=== PATIENT | female | born 1980 | race American Indian/Alaskan Native ===

== ENCOUNTER 2016-05-20 16:46 | Observation (INO) | payer MEDICAID, OTHER ==
--- NOTE | 2016-05-20 17:39 | ED PDOC ---
Arrival/HPI - General Chief Complaint: Chest Pain Time Seen by Provider: 05/20/16 17:03 Historian: Patient - History of Present Illness Narrative History of Present Illness (Text): 05/20/16 17:31 35 year old female with a past medical history that includes asthma sent to the emergency department by PMD for further evaluation of left sided chest pain/ back pain since yesterday. Patient states the pain began while sitting in bed. She states the pain is worse with movement. She states she took Ibuprofen, last dose at 06:30 today with no relief. Denies abdominal pain, urinary symptoms, or stool changes. No recent travel or prolonged immobilization. Denies trauma/ injury or heavy lifting. No control use or tobacco use. Patient also reports recent cold symptoms. Patient reports her brother had a defibrilator put in at 35 years old, father with stents, and mother with CHF. PMD: Dr. Cantor Time/Duration: 24 hours Symptom Onset: Sudden Symptom Course: Unchanged Modifying Factors (Text): None Associated Symptoms (Text): None Past Medical History - Provider Review Nursing Documentation Reviewed: Yes - Tetanus Immunization Tetanus Immunization: Unknown - Cardiac Hx Cardiac Disorders: No - Pulmonary Hx Respiratory Disorders: Yes Hx Asthma: Yes - Neurological Hx Neurological Disorder: No - HEENT Hx HEENT Disorder: No - Renal Hx Renal Disorder: No - Endocrine/Metabolic Hx Endocrine Disorders: Yes Other/Comment: PRE DM - Hematological/Oncological Hx Blood Transfusions: No Other/Comment: VITAMIN D DEFICIENT - Integumentary Hx Dermatological Disorder: No - Musculoskeletal/Rheumatological Hx Musculoskeletal Disorders: No - Gastrointestinal Hx Gastrointestinal Disorders: No - Genitourinary/Gynecological Hx Genitourinary Disorders: No - Psychiatric Hx Psychophysiologic Disorder: No Hx Emotional Abuse: No Hx Physical Abuse: No Hx Substance Use: No - Surgical History Hx Section: Yes - Anesthesia Hx Anesthesia Reactions: No Hx Malignant Hyperthermia: No - Suicidal Assessment Feels Threatened In Home Enviroment: No Family/Social History - Physician Review Nursing Documentation Reviewed: Yes Family/Social History: [place] Smoking Status: Never Smoked Hx Alcohol Use: No Hx Substance Use: No Hx Substance Use Treatment: No Allergies/Home Meds Allergies/Adverse Reactions: Allergies FISH Allergy (Verified 05/20/16 16:56) RASH seafood general Home Medications: Home Meds Medication Instructions Recorded Confirmed No Known Home Med 05/20/16 05/20/16 Review of Systems - Review of Systems Eyes: absent: Vision Changes ENT: absent: Hearing Changes Respiratory: absent: SOB Cardiovascular: Chest Pain Gastrointestinal: absent: Abdominal Pain, Stool Changes, Diarrhea, Nausea, Vomiting Genitourinary Female: absent: Dysuria, Frequency, Hematuria Musculoskeletal: Back Pain Skin: absent: Rash Neurological: absent: Dizziness Endocrine: absent: Diaphoresis Hemo/Lymphatic: absent: Easy Bleeding Psychiatric: absent: Depression Physical Exam - Physical Exam Narrative Physical Exam (Text): Head: Atraumatic. Normocephalic. Eyes: PERRL. EOMI. Conjunctivae are not pale. ENT: Mucous membranes are moist and intact. Oropharynx is clear and symmetric. Neck: Supple. Full ROM. No JVD. No lymphadenopathy. Cardiovascular: Regular rate. Regular rhythm. No murmurs, rubs, or gallops. Distal pulses are 2+ and symmetric. Pulmonary/Chest: Palpable left anterior chest wall pain. No evidence of respiratory distress. Clear to auscultation bilaterally. No wheezing, rales or rhonchi. Abdominal: Soft and non-distended. There is no tenderness. No rebound, guarding, or rigidity. No organomegaly. Good bowel sounds. Back: No CVA tenderness. Palpable mild left scapula pain. Extremities: No edema. No cyanosis. No clubbing. Full range of motion in all extremities. No calf tenderness. Skin: Skin is warm and dry. No petechiae. No purpura. Neurological: Alert, awake, and oriented to person, place, time, and situation. Normal speech. Psychiatric: Good eye contact. Normal interaction, affect, and behavior. Vital Signs Reviewed: Yes Vital Signs Temp Pulse Resp BP Pulse Ox 05/20/16 19:15 83 18 117/68 100 05/20/16 17:30 98.1 F 72 18 142/84 99 Temperature: Afebrile Blood Pressure: Normal Pulse: Regular Respiratory Rate: Normal Appearance: Positive for: Well-Appearing, Non-Toxic, Comfortable Pain Distress: None Mental Status: Positive for: Alert and Oriented X 3 Medical Decision Making ED Course and Treatment: Differential Diagnosis included but are not limited to: Nonspecific chest pain Plan: Will get CCU workup, d-dimer, and reevaluate. Progress Notes: D-dimer unremarkable. Aspirin was ordered for persistent chest pain. Given patient's past cardiac history, will admit to telemetry observation with cardiac consult. Case discussed with Dr. Cantor. - Lab Interpretations Lab Results: 05/20/16 17:05 05/20/16 17:05 Lab Results 05/20/16 17:05: WBC 8.0 D, RBC 4.41, Hgb 11.5 L, Hct 34.5 L, MCV 78.2 L, MCH 26.1, MCHC 33.3, RDW 14.5, Plt Count 365, MPV 10.1, Gran % 55.8, Lymph % (Auto) 35.0, Miller % (Auto) 7.0 H, Eos % (Auto) 2.0, Baso % (Auto) 0.2, Gran # 4.47, Lymph # 2.8, Miller # 0.6, Eos # 0.2, Baso # 0.02, PT 10.1, INR 0.94, APTT 30.4, D -Dimer, Quantitative 0.27, Sodium 139, Potassium 3.8, Chloride 101, Carbon Dioxide 28, Anion Gap 14, BUN 9, Creatinine 0.7, Est GFR ( Amer) > 60, Est GFR (Non-Af Amer) > 60, Random Glucose 97, Calcium 9.3, Total Bilirubin 0.4 , AST 25, ALT 17, Alkaline Phosphatase 133, Lactate Dehydrogenase 428, Total Creatine Kinase 95, Troponin I < 0.01, NT-Pro-B Natriuret Pep 11.6, Total Protein 8.4 H, Albumin 4.3, Globulin 4.1, Albumin/Globulin Ratio 1.0 L, Urine Color Yellow, Urine Appearance Clear, Urine pH 6.5, Ur Specific Adkins 1.015, Urine Protein Negative, Urine Glucose (UA) Negative, Urine Ketones Negative, Urine Blood Negative, Urine Nitrate Negative, Urine Bilirubin Negative, Urine Urobilinogen 0.2, Ur Leukocyte Esterase Negative, Urine HCG, Qual Negative - RAD Interpretation Radiology Orders: 05/20/16 17:35 CHEST PORTABLE [RAD] Stat - Medication Orders Current Medication Orders: Discontinued Medications Tramadol HCl (Ultram) 50 mg PO STAT STA Stop: 05/20/16 19:00 Last Admin: 05/20/16 19:08 Dose: 50 MG - Scribe Statement The provider has reviewed the documentation as recorded by the Johnnie Lopez Provider Scribe Attestation: All medical record entries made by the Scribe were at my direction and personally dictated by me. I have reviewed the chart and agree that the record accurately reflects my personal performance of the history, physical exam, medical decision making, and the department course for this patient. I have also personally directed, reviewed, and agree with the discharge instructions and disposition. Disposition/Present on Arrival - Present on Arrival Any Indicators Present on Arrival: No History of DVT/PE: No History of Uncontrolled Diabetes: No Urinary Catheter: No History of Decub. Ulcer: No History Surgical Site Infection Following: None - Disposition Have Diagnosis and Disposition been Completed?: Yes Diagnosis: Chest pain Disposition: HOSPITALIZED Disposition Time: 19:00 Patient Plan: Observation, Telemetry Patient Problems: Current Active Problems Problem Status Diagnosed Chest pain Acute Condition: FAIR
[2016-05-20 17:49] LABS: ADD MANUAL DIFF? NO
[2016-05-20 18:11] LABS: ALKALINE PHOSPHATASE 133 U/L (38-133); ALT/SGPT 17 U/L (7-56); AST/SGOT 25 U/L (15-39); BILIRUBIN,TOTAL 0.4 mg/dL (0.2-1.3); BLOOD UREA NITROGEN 9 mg/dL (7-21); CALCIUM 9.3 mg/dL (8.4-10.5); CARBON DIOXIDE 28 mmol/L (21-33); CHLORIDE 101 mmol/L (98-107); GFR AFRICAN-AMERICAN > 60; GLUCOSE,RANDOM 97 mg/dL (70-110); POTASSIUM 3.8 mmol/L (3.6-5.0); SODIUM 139 mmol/L (132-148); TOTAL PROTEIN 8.4 g/dL (5.8-8.3)
[2016-05-20 18:22] LABS: PH,URINE 6.5 (4.7-8.0); URINE BILIRUBIN NEGATIVE (NEGATIVE); URINE GLUCOSE (UA) NEGATIVE (NEGATIVE); URINE KETONE NEGATIVE (NEGATIVE); URINE LEUKOCYTE ESTERASE NEGATIVE Leu/uL (NEGATIVE); URINE PROTEIN NEGATIVE mg/dL (<30 mg/dL); URINE UROBILINOGEN 0.2 E.U./dL (<1 E.U./dL)
[2016-05-20 18:24] LABS: TROPONIN I < 0.01 ng/mL
[2016-05-20 18:35] LABS: BASO # 0.02 K/mm3 (0.0-2.0); BASO % 0.2 % (0.0-3.0); EOS # 0.2 (0.0-0.7); GRAN # 4.47 (1.4-6.5); GRAN % 55.8 % (50.0-68.0); HEMATOCRIT 34.5 % (36.0-48.0); LYMPH # 2.8 (1.2-3.4); MEAN CELL VOLUME 78.2 fL (80.0-105.0); MEAN CORPUSCULAR HEMOGLOBIN 26.1 pg (25.0-35.0); MEAN CORPUSCULAR HGB CONC 33.3 g/dl (31.0-37.0); MEAN PLATELET VOLUME 10.1 fl (7.0-11.0); MONO # 0.6 (0.1-0.6); PLATELET COUNT 365 10^3/uL (120.0-450.0); RED CELL DISTRIBUTION WIDTH 14.5 % (11.5-14.5)
[2016-05-20 18:36] LABS: URINE COLOR YELLOW (YELLOW)
[2016-05-20 18:37] LABS: URINE APPEARANCE CLEAR (CLEAR); URINE BLOOD NEGATIVE (NEGATIVE)
[2016-05-20 18:48] LABS: INR 0.94 (0.93-1.08); PARTIAL THROMBOPLASTIN TIME 30.4 Seconds (23.7-30.8)
[2016-05-20 19:01] LABS: D DIMER 0.27 mg/L FEU (0-0.50)
[2016-05-20 19:17] VITALS: O2SAT 100
[2016-05-20 23:31] VITALS: BMI 36.6
[2016-05-20] MEDS ORDERED: Oxycodone/Acetaminophen 5/325 mg Tab PO STA (23:57)
[2016-05-21 01:28] LABS: TROPONIN I < 0.01 ng/mL
[2016-05-21 06:11] VITALS: BP 116/65; PULSE 88; RESP 20; TEMP 98.6
[2016-05-21 07:25] LABS: HEMATOCRIT 31.9 % (36.0-48.0); MEAN CELL VOLUME 78.4 fL (80.0-105.0); MEAN CORPUSCULAR HEMOGLOBIN 26.5 pg (25.0-35.0); MEAN CORPUSCULAR HGB CONC 33.9 g/dl (31.0-37.0); MEAN PLATELET VOLUME 9.7 fl (7.0-11.0); RED CELL DISTRIBUTION WIDTH 14.5 % (11.5-14.5); WHITE BLOOD COUNT 6.4 10^3/ul (4.5-11.0)
[2016-05-21 07:36] LABS: BLOOD UREA NITROGEN 9 mg/dL (7-21); CALCIUM 9.1 mg/dL (8.4-10.5); CARBON DIOXIDE 26 mmol/L (21-33); CHLORIDE 101 mmol/L (95-110); GFR AFRICAN-AMERICAN > 60; GLUCOSE,RANDOM 100 mg/dL (70-110); POTASSIUM 3.8 mmol/L (3.6-5.0); SODIUM 137 mmol/L (132-148)
--- NOTE | 2016-05-21 08:25 | CARD ---
APPROVED REPORT EKG Measurement Heart [id number] <Conclusion> Normal sinus rhythm with sinus arrhythmia Normal ECG
--- NOTE | 2016-05-21 13:35 | RAD ---
PROCEDURE: CHEST RADIOGRAPH, 1 VIEW HISTORY: chest pain COMPARISON: None available. FINDINGS: LUNGS: Clear. PLEURA: No pneumothorax or pleural fluid seen. CARDIOVASCULAR: Normal. OSSEOUS STRUCTURES: No significant abnormalities. VISUALIZED UPPER ABDOMEN: Normal. OTHER FINDINGS: None. IMPRESSION: No active disease.
--- NOTE | 2016-05-21 14:31 | CON ---
DATE: 05/21/2016 The patient is in room 270, bed 1. REASON FOR CONSULTATION: Chest pain. HISTORY OF PRESENT ILLNESS: The patient is a 35-year-old female admitted with a history that, since last 3 days, she has sharp, continuous chest pain along the left upper sternal border and she has als o local tenderness in that area. It has no relation to exertion. She says, when she takes deep arjun th, it hurts her more. The patient known to have asthma and high cholesterol. Denies any prior hist ory of exertional chest pains or cardiac problems. She says the pain is continuous and sharp. PAST MEDICAL HISTORY: Positive for asthma and high cholesterol. PERSONAL HISTORY: No smoking, no drinking. ALLERGIES: SHE IS ALLERGIC TO SEAFOOD. FAMILY HISTORY: Father had stent at age 59. Brother has cardiomyopathy and has AICD. REVIEW OF SYSTEMS: All the systems were reviewed, positive mentioned in the history, others were neg ative. PHYSICAL EXAMINATION: VITAL SIGNS: Blood pressure 116/65, respirations 20, pulse 88, temperature 98.6. HEENT: Head is normocephalic. Eyes: Pupils normal. Conjunctivae normal. Nose and throat normal. NECK: JVP low. Carotid equal. THORAX: AP diameter normal. LUNGS: Clear. Chest wall tenderness at the area of the pain. CARDIOVASCULAR: S1, S2. No rub. ABDOMEN: Soft, no tenderness, no organomegaly. EXTREMITIES: No clubbing, no cyanosis. LABORATORY DATA: Showed WBC 6.4, hemoglobin 10.8, hematocrit 31.9, platelet 327. Sodium 137, potass ium 3.8, BUN 9, creatinine 0.7. Troponin x 2 negative. AST, ALT negative. Triglyceride 121, choles terol 154, LDL 82, HDL 40. TSH 2.61, normal. Chest x-ray: No active disease. EKG shows sinus rhyt hm. DIAGNOSES: Chest pain, musculoskeletal; history of asthma, history of high cholesterol. PLAN: Treat the chest pain symptomatically. I advised the patient to use anti-inflammatory medicati on. She wants to go home and I gave her a prescription for echo and stress test as an outpatient and she will also follow with Dr. Cantor in her office and we will follow. Rebekah Foley MD cc: [id number] TT: 05/21/2016 14:31:23 Confirmation # [id number] Dictation # [id number]
[2016-05-21 17:38] LABS: FOLATE 14.7 ng/mL
--- NOTE | 2016-05-22 08:33 | HP ---
CHIEF COMPLAINT: Chest pain. HISTORY OF PRESENT ILLNESS: The patient is a 35-year-old female with past medical history of asthma, came actually to my office with complaining of chest pain, left-sided, going to the back and upper extremity. Because of her family history, I sent her to the [facility]. The patient was admitted, seen by the biometrics experimentalist and ER physician. The patient reported that her brother had defibrillator at the age of 35. Father with stents. Mother with congestive heart failure. That is why we admitted the patient. PAST MEDICAL HISTORY: Asthma, prediabetic, history of section and abscess. FAMILY HISTORY: Coronary artery disease, [place], congestive heart failure, defibrillator. HABITS: Never smoked, no drugs, no ethanol. ALLERGIES: THE PATIENT IS ALLERGIC WITH FISH AND OTHER SEAFOOD IN GENERAL. HOME MEDICATIONS: Reviewed by me. REVIEW OF SYSTEMS: The patient was seen and examined on the bedside sheet metal operator, looks comfortable. Seen by the biometrics experimentalist. No fever, no chills. No nausea, vomiting, diarrhea. No hematuria, no hematochezia. No headache, no dizziness, no more chest pain. PHYSICAL EXAMINATION: VITAL SIGNS: Temperature 98.1, pulse 72, respiratory rate 18, blood pressure 120/84, pulse oximetry 99%. HEENT: Normocephalic, atraumatic. Eyes: PERRLA. Extraocular muscles intact. Conjunctivae pink. Eyelids unremarkable. Nose patent. Mucous membranes moist. NECK: Supple. No carotid bruit, no JVD, no thyromegaly. CHEST: Bilaterally symmetrical. HEART: S1 and S2 positive. LUNGS: Clear to auscultation. ABDOMEN: Soft. Bowel sounds positive. No organomegaly. EXTREMITIES: No edema, no cyanosis. NEUROLOGIC: The patient is awake, alert. Moving all 4 extremities. No focal deficits. LABORATORIES: White blood cells 8.0, hemoglobin 11.5, hematocrit 34.5, platelets 365. Sodium 139, potassium 3.8, BUN noted , creatinine 0.7, sugar 97. ASSESSMENT AND PLAN: The patient is a 35-year-old lady with anemia, history of asthma, is admitted with chest pain. Seen by Dr. Foley. History of hypercholesterolemia and prediabetic, history of section and abscess. According to Dr. Foley, chest pain looks like musculoskeletal and Dr. Foley wants to treat the pain symptomatically with anti-inflammatory medications. The patient wanted to go home and Dr. Foley gave prescription of echocardiography and stress test as outpatient. She will follow up with Dr. Foley and my office. We will work on patient's anemia. Thyroid is within normal limits. Cholesterol is within normal limits. Troponin x 2 is less than 0.01. So, patient discharged home because it was cleared by the cardiology. We will follow up as outpatient and patient was educated in case if chest pain will come back or she will feel a little bit different, then come back to [facility] or call 911. Otherwise, follow up with biometrics experimentalist and primary care physician as outpatient. Humaira Cantor MD cc: [id number] TT: 05/22/2016 08:32:41 en MTDD
--- NOTE | 2016-05-22 14:48 | DS ---
The patient is a 35-year-old female. The patient was cleared by the news assistant. Came in with ches t pain, and will go for echocardiography and stress test as outpatient. Prescription given by Dr. Sa gutierrez. Follow up with news assistant results outpatient. The patient wants to go home. I saw the carlos ent the same day. For more details, see the patient's H and P. Humaira Cantor MD cc: [id number] TT: 05/22/2016 14:48:11 vn
== END 2016-05-21 12:24 | disposition home or self-care (01) ==
LOC: ED 16:46 → ERH 19:40 → 2RSO 22:18
PROVIDERS: ADMIT Internal Medicine; ATTEND Internal Medicine
DX: R07.89 Other chest pain (principal); D64.9 Anemia, unspecified; J45.909 Unspecified asthma, uncomplicated; E78.00 Pure hypercholesterolemia, unspecified; Z82.49 Family history of ischemic heart disease and other diseases of the circulatory system; R73.03 Prediabetes; M54.9 Dorsalgia, unspecified; E55.9 Vitamin D deficiency, unspecified; Z91.013 Allergy to seafood
CPT/HCPCS: 36415; 71010; 80048; 80053; 80061; 81003; 82550; 82607; 82746; 83036; 83540; 83615; 83880; 84443; 84484; 84703; 85025; 85027; 85378; 85610; 85730; 93005; 99285; G0378

== ENCOUNTER 2017-03-06 23:59 | Emergency (ER) | payer OTHER ==
[2017-03-07] VITALS: BMI 36.6
[2017-03-07 01:08] LABS: BASO # 0.02 K/mm3 (0.0-2.0); BASO % 0.3 % (0.0-3.0); EOS # 0.1 (0.0-0.7); EOS % 1.1 % (1.5-5.0); GRAN # 3.75 (1.4-6.5); HEMOGLOBIN 11.9 g/dL (12.0-16.0); LYMPH % 40.4 % (22.0-35.0); MEAN CELL VOLUME 79.8 fl (80.0-105.0); MEAN CORPUSCULAR HEMOGLOBIN 26.4 pg (25.0-35.0); MEAN CORPUSCULAR HGB CONC 33.1 g/dl (31.0-37.0); MEAN PLATELET VOLUME 9.7 fl (7.0-11.0); MONO # 0.5 (0.1-0.6); MONO % 7.2 % (1.0-6.0); RBC 4.5 10^6/uL (3.5-6.1); RED CELL DISTRIBUTION WIDTH 14.4 % (11.5-14.5); WHITE BLOOD COUNT 7.4 10^3/ul (4.5-11.0)
[2017-03-07 01:32] VITALS: RESP 17; O2SAT 98
[2017-03-07 01:46] LABS: ALB/GLOB RATIO 1.2 (1.1-1.8); ALBUMIN 4.1 g/dL (3.0-4.8); ALT/SGPT 23 U/L (7-56); AST/SGOT 16 U/L (14-36); BLOOD UREA NITROGEN 7 mg/dL (7-21); CALCIUM 9.6 mg/dL (8.4-10.5); GFR AFRICAN-AMERICAN > 60; GFR NON-AFRICAN AMERICAN > 60; MAGNESIUM 1.7 mg/dL (1.7-2.2)
[2017-03-07 02:07] LABS: TROPONIN I < 0.01 ng/mL
[2017-03-07 03:01] VITALS: BP 125/75; PULSE 72; TEMP 98.2
--- NOTE | 2017-03-07 04:17 | ED PDOC ---
Arrival/HPI - General Chief Complaint: Chest Pain Time Seen by Provider: 03/07/17 00:19 - History of Present Illness Narrative History of Present Illness (Text): 03/07/17 00:26 A 36 year old female, whose past medical history includes asthma, presents to the emergency department complaining of sharp chest pain for several days. Patient reports having similar episode in the past. Patient denies any fever, cough, abdominal pain, nausea, vomiting, or any other complaints. Also, patient mentions she was referred to follow-up with outpatient stress test and echo examination but did not do so. No PMD Time/Duration: < week (several days) Symptom Onset: Sudden Symptom Course: Unchanged Quality: Other (sahrp chest pain) Past Medical History - Provider Review Nursing Documentation Reviewed: Yes - Tetanus Immunization Tetanus Immunization: Unknown - Cardiac Hx Cardiac Disorders: No - Pulmonary Hx Respiratory Disorders: Yes Hx Asthma: Yes - Neurological Hx Neurological Disorder: No - HEENT Hx HEENT Disorder: No - Renal Hx Renal Disorder: No - Endocrine/Metabolic Hx Endocrine Disorders: Yes Other/Comment: PRE DM - Hematological/Oncological Hx Blood Transfusions: No Other/Comment: VITAMIN D DEFICIENT - Integumentary Hx Dermatological Disorder: No - Musculoskeletal/Rheumatological Hx Musculoskeletal Disorders: No - Gastrointestinal Hx Gastrointestinal Disorders: No - Genitourinary/Gynecological Hx Genitourinary Disorders: No - Psychiatric Hx Psychophysiologic Disorder: No Hx Emotional Abuse: No Hx Physical Abuse: No Hx Substance Use: No - Surgical History Hx Section: Yes - Anesthesia Hx Anesthesia Reactions: No Hx Malignant Hyperthermia: No - Suicidal Assessment Feels Threatened In Home Enviroment: No Family/Social History - Physician Review Nursing Documentation Reviewed: Yes Family/Social History: No Known Family HX Smoking Status: Never Smoked Hx Alcohol Use: No Hx Substance Use: No Hx Substance Use Treatment: No Allergies/Home Meds Allergies/Adverse Reactions: Allergies FISH Allergy (Verified 05/20/16 16:56) RASH seafood general Home Medications: Home Meds Medication Instructions Recorded Confirmed Ergocalciferol [Drisdol] 50,000 iu PO 05/20/16 Ferrous Sulfate [Feosol] 325 mg PO DAILY 05/20/16 05/20/16 Multivitamin [Multivitamins] DAILY 05/20/16 Vitamin B-12 1,000 mcg 05/20/16 Albuterol 0.083% 05/21/16 Review of Systems - Physician Review All systems were reviewed & negative as marked: Yes - Review of Systems Constitutional: absent: Fevers Respiratory: absent: Cough Cardiovascular: Chest Pain (sharp) Gastrointestinal: absent: Abdominal Pain, Nausea, Vomiting Physical Exam Vital Signs Reviewed: Yes Vital Signs Temp Pulse Pulse Resp BP Pulse Ox 03/07/17 03:00 98.2 F 72 17 125/75 98 03/07/17 01:15 98.0 F 71 17 145/92 H 98 03/07/17 00:15 70 Pulse: Regular Pain Distress: None Mental Status: Positive for: Alert and Oriented X 3 - Systems Exam Head: Present: Atraumatic, Normocephalic Pupils: Present: PERRL Extroacular Muscles: Present: EOMI Conjunctiva: Present: Normal Mouth: Present: Moist Mucous Membranes Neck: Present: Normal Range of Motion Respiratory/Chest: Present: Clear to Auscultation, Good Air Exchange. No: Respiratory Distress, Accessory Muscle Use Cardiovascular: Present: Regular Rate and Rhythm, Normal S1, S2. No: Murmurs Abdomen: Present: Normal Bowel Sounds. No: Tenderness, Distention, Peritoneal Signs Back: Present: Normal Inspection Upper Extremity: Present: Normal Inspection. No: Cyanosis, Edema Lower Extremity: Present: Normal Inspection. No: Edema Neurological: Present: GCS=15, CN II-XII Intact, Speech Normal Skin: Present: Warm, Dry, Normal Color. No: Rashes Psychiatric: Present: Alert, Oriented x 3, Normal Insight, Normal Concentration Medical Decision Making ED Course and Treatment: 03/07/17 00:14 Impression: 36 year old female with sharp chest pain. Physical exam is unremarkable. Plan: -- EKG -- Chest X-ray -- Labs -- Reassess and disposition Prior Visits: Notes and results from previous visits were reviewed. Patient was last seen in the emergency department on Progress Notes: EKG: Ordered, reviewed, and independently interpreted the EKG. Rate : 69 BPM Rhythm : Sinus rhythm Interpretation : No ST-segment elevations or depressions, no T-wave inversions, normal intervals. Comparison : No previous EKG for comparison. - Lab Interpretations Lab Results: 03/07/17 00:30 03/07/17 00:30 Lab Results 03/07/17 00:30: Sodium 138, Potassium 3.4 L, Chloride 101, Carbon Dioxide 25, Anion Gap 15, BUN 7, Creatinine 0.6 L, Est GFR ( Amer) > 60, Est GFR (Non -Af Amer) > 60, Random Glucose 101, Calcium 9.6, Magnesium 1.7, Total Bilirubin 0.4, AST 16, ALT 23, Alkaline Phosphatase 97, Lactate Dehydrogenase 380, Total Creatine Kinase 88, Troponin I < 0.01, Total Protein 7.7, Albumin 4.1, Globulin 3.5, Albumin/Globulin Ratio 1.2 03/07/17 00:30: WBC 7.4, RBC 4.50, Hgb 11.9 L, Hct 35.9 L, MCV 79.8 L, MCH 26.4 , MCHC 33.1, RDW 14.4, Plt Count 304, MPV 9.7, Gran % 51.0, Lymph % (Auto) 40.4 H, York % (Auto) 7.2 H, Eos % (Auto) 1.1 L, Baso % (Auto) 0.3, Gran # 3.75, Lymph # 3.0, York # 0.5, Eos # 0.1, Baso # 0.02 I have reviewed the lab results: Yes - RAD Interpretation Radiology Orders: 03/07/17 00:29 CHEST PORTABLE [RAD] Stat - Scribe Statement The provider has reviewed the documentation as recorded by the Johnnie Milan Provider Scribe Attestation: All medical record entries made by the Scribe were at my direction and personally dictated by me. I have reviewed the chart and agree that the record accurately reflects my personal performance of the history, physical exam, medical decision making, and the department course for this patient. I have also personally directed, reviewed, and agree with the discharge instructions and disposition. Disposition/Present on Arrival - Present on Arrival Any Indicators Present on Arrival: No History of DVT/PE: No History of Uncontrolled Diabetes: No Urinary Catheter: No History of Decub. Ulcer: No History Surgical Site Infection Following: None - Disposition Have Diagnosis and Disposition been Completed?: Yes Diagnosis: Non-cardiac chest pain Disposition: HOME/ ROUTINE Disposition Time: 02:00 Condition: GOOD Discharge Instructions (ExitCare): Chest Pain (ED) Additional Instructions: Thank you for letting us take care of you today. The emergency medical care you received today was directed at your acute symptoms. If you were prescribed any medication, please fill it and take as directed. It may take several days for your symptoms to resolve. Return to the Emergency Department if your symptoms worsen, do not improve, or if you have any other problems. Please contact your doctor or call one of the physicians/clinics you have been referred to that are listed on the Patient Visit Information form that is included in your discharge packet. Bring any paperwork you were given at discharge with you along with any medications you are taking to your follow up visit. Our treatment cannot replace ongoing medical care by a primary care provider (PCP) outside of the emergency department. Thank you for allowing the [facility] team to be part of your care today. Follow up with your doctor in 2-3 days for re-evaluation and further management. Referrals: [facility], [Non-Staff] - Follow up with primary Forms: [facility] (Qatari)
--- NOTE | 2017-03-07 08:14 | RAD ---
HISTORY: chest pain COMPARISON: 05/20/2016 FINDINGS: LUNGS: No active pulmonary disease. PLEURA: No significant pleural effusion identified, no pneumothorax apparent. CARDIOVASCULAR: Normal. OSSEOUS STRUCTURES: No significant abnormalities. VISUALIZED UPPER ABDOMEN: Normal. OTHER FINDINGS: None. IMPRESSION: No active disease.
--- NOTE | 2017-03-07 10:47 | CARD ---
APPROVED REPORT EKG Measurement Heart [id number] <Conclusion> Normal sinus rhythm with sinus arrhythmia Normal ECG
== END 2017-03-07 03:02 | disposition home or self-care (01) ==
LOC: ED 23:59
DX: R07.89 Other chest pain (principal)

== ENCOUNTER 2018-05-02 16:58 | Emergency (ER) | payer OTHER ==
[2018-05-02 18:39] VITALS: BMI 34.1
--- NOTE | 2018-05-02 19:33 | ED PDOC ---
Arrival/HPI - General Chief Complaint: Chest Pain Time Seen by Provider: 05/02/18 17:46 Historian: Patient - History of Present Illness Narrative History of Present Illness (Text): 05/02/18 19:29 37-year-old female with a history of asthma presents today with chest pain radiating into the left arm. Patient states she has pain is also in the left side of the neck and into the left shoulder. Patient states the pain worsens if she turns her head to the left or moves her arm. Patient states this pain started approximately 15 to 20 minutes after waking up this morning. No medications have been taken at home. Patient describes the chest pain as a tightness. She denies abdominal pain. States she was feeling slightly nauseous earlier but denies any nausea at present time. No vomiting or diarrhea. No low back pain. Patient denies trauma or injury. Patient denies control pills, denies recent travel. Patient denies calf pain or leg swelling. No other complaints Past Medical History - Provider Review Nursing Documentation Reviewed: Yes - Travel History Have you recently traveled outside [place] w/in the past 3 mons?: No - Tetanus Immunization Tetanus Immunization: Unknown - Cardiac Hx Cardiac Disorders: No - Pulmonary Hx Respiratory Disorders: Yes Hx Asthma: Yes - Neurological Hx Neurological Disorder: No - HEENT Hx HEENT Disorder: No - Renal Hx Renal Disorder: No - Endocrine/Metabolic Hx Endocrine Disorders: Yes Other/Comment: PRE DM - Hematological/Oncological Hx Blood Transfusions: No Other/Comment: VITAMIN D DEFICIENT - Integumentary Hx Dermatological Disorder: No - Musculoskeletal/Rheumatological Hx Musculoskeletal Disorders: No - Gastrointestinal Hx Gastrointestinal Disorders: No - Genitourinary/Gynecological Hx Genitourinary Disorders: No - Psychiatric Hx Psychophysiologic Disorder: No Hx Emotional Abuse: No Hx Physical Abuse: No Hx Substance Use: No - Surgical History Hx Section: Yes - Anesthesia Hx Anesthesia Reactions: No Hx Malignant Hyperthermia: No - Suicidal Assessment Feels Threatened In Home Enviroment: No Family/Social History - Physician Review Nursing Documentation Reviewed: Yes Family/Social History: Unknown Family HX Smoking Status: Never Smoked Hx Alcohol Use: No Hx Substance Use: No Hx Substance Use Treatment: No Allergies/Home Meds Allergies/Adverse Reactions: Allergies cat dander Allergy (Verified 05/02/18 18:40) URTICARIA dog dander Allergy (Verified 05/02/18 18:40) URTICARIA FISH Allergy (Verified 05/20/16 16:56) RASH seafood general pollen extracts Allergy (Verified 05/02/18 18:40) URTICARIA Home Medications: Home Meds Medication Instructions Recorded Confirmed Ergocalciferol [Drisdol] 50,000 iu PO 05/20/16 Ferrous Sulfate [Feosol] 325 mg PO DAILY 05/20/16 05/20/16 Multivitamin [Multivitamins] DAILY 05/20/16 Vitamin B-12 1,000 mcg 05/20/16 Albuterol 0.083% 05/21/16 Review of Systems - Review of Systems Constitutional: absent: Fatigue, Fevers Respiratory: absent: SOB, Cough Cardiovascular: Chest Pain. absent: Palpitations Gastrointestinal: Nausea. absent: Abdominal Pain, Constipation, Diarrhea, V omiting Genitourinary Female: absent: Dysuria, Frequency, Hematuria Musculoskeletal: Arthralgias. absent: Back Pain, Neck Pain Skin: absent: Rash, Pruritis Neurological: absent: Headache, Dizziness Psychiatric: absent: Anxiety, Depression, Suicidal Ideation Physical Exam Vital Signs Reviewed: Yes Vital Signs Temp Pulse Pulse Resp BP BP Pulse Ox 05/02/18 18:52 98.0 F 82 17 133/79 99 05/02/18 18:45 76 133/73 Temperature: Afebrile Blood Pressure: Normal Pulse: Regular Respiratory Rate: Normal Appearance: Positive for: Well-Appearing, Non-Toxic, Comfortable Pain Distress: None Mental Status: Positive for: Alert and Oriented X 3 - Systems Exam Head: Present: Atraumatic Mouth: Present: Moist Mucous Membranes Neck: Present: Normal Range of Motion Respiratory/Chest: Present: Clear to Auscultation, Good Air Exchange, Tender to Palpation (+ ttp over left anterior chest, left trapezius, left upper back). No: Respiratory Distress, Accessory Muscle Use Cardiovascular: Present: Regular Rate and Rhythm Abdomen: No: Tenderness, Distention, Rebound, Guarding Back: Present: Normal Inspection, Other (+ ttp over left upper back/ left trapezius). No: Midline Tenderness, Paraspinal Tenderness Upper Extremity: Present: Normal Inspection Lower Extremity: Present: Normal Inspection. No: Edema, CALF TENDERNESS Neurological: Present: GCS=15, Speech Normal Skin: Present: Warm, Dry, Normal Color. No: Rashes Psychiatric: Present: Alert, Oriented x 3 Medical Decision Making ED Course and Treatment: 05/02/18 23:15 37-year-old female presents today with chest pain worse with movement of the left arm or turning the neck to the left. Patient states the pain goes into the left arm and also goes into the left leg. CBC within normal limits CMP K; 3.5 Troponin within normal limits D-dimer within normal limits Chest x-ray shows no infiltrate or effusion EKG shows normal sinus rhythm at 100 bpm normal axis normal intervals no ST elevations Patient was given Toradol and Valium for pain with improvement/resolution of her chest pain. Patient is still complaining of pain to the left thigh and leg. Venous duplex of the left lower extremity reveals no DVT Patient's potassium was 3.5 potassium given p.o. All results were discussed in depth with the patient. She was advised to follow-up with her primary care physician and group leader wafer polishing. She was advised to take Motrin and Valium for pain and muscle spasms. Patient was advised to may return if symptoms worsen persist or if new concerning symptoms develop Patient verbalizes understanding of discharge instructions and need for immediate followup. All aspects of this case were discussed the attending of record. Impression: Chest wall pain, muscle strain, leg pain Motrin every 6 hours as needed for pain Valium 1 tablet every 8 hours as needed for muscle spasms: may cause drowsiness Follow-up with a primary care physician within the next 2 days Follow-up with a group leader wafer polishing within the next 2 days Return immediately if symptoms worsen persist or if new concerning symptoms deve lop Reassessment Condition: Re-examined, Improved - RAD Interpretation Radiology Orders: 05/02/18 18:40 CHEST PORTABLE [RAD] Stat Disposition/Present on Arrival - Present on Arrival Any Indicators Present on Arrival: No History of DVT/PE: No History of Uncontrolled Diabetes: No Urinary Catheter: No History of Decub. Ulcer: No History Surgical Site Infection Following: None - Disposition Have Diagnosis and Disposition been Completed?: Yes Diagnosis: Chest pain, Muscle strain, Leg pain Disposition: HOME/ ROUTINE Disposition Time: 20:19 Patient Plan: Discharge Condition: GOOD Discharge Instructions (ExitCare): Chest Pain (ED), Muscle Strain (DC) Additional Instructions: Motrin every 6 hours as needed for pain Valium 1 tablet every 8 hours as needed for muscle spasms: may cause drowsiness Follow-up with a primary care physician within the next 2 days Follow-up with a group leader wafer polishing within the next 2 days Return immediately if symptoms worsen persist or if new concerning symptoms develop Prescriptions: diaZEpam [Valium] 2 mg PO Q8H PRN #6 tab PRN Reason: muscle spasms Ibuprofen [Motrin] 600 mg PO Q6H PRN #20 tab PRN Reason: pain/fever reduction Referrals: Humaira Cantor MD [Staff Provider] - Follow up with primary Rebekah Foley MD [Staff Provider] - Follow up with primary Forms: [employer] ([place]), WORK NOTE
--- NOTE | 2018-05-02 19:55 | CARD ---
APPROVED REPORT Date of service: 05/02/2018 EKG Measurement Heart [id number] <Conclusion> Normal sinus rhythm Normal ECG
[2018-05-02 19:58] LABS: PH,URINE 6.5 (4.7-8.0); URINE BILIRUBIN NEGATIVE (NEGATIVE); URINE BLOOD NEGATIVE (NEGATIVE); URINE GLUCOSE (UA) NEGATIVE (NEGATIVE); URINE LEUKOCYTE ESTERASE NEGATIVE Leu/uL (NEGATIVE); URINE PROTEIN NEGATIVE mg/dL (<30 mg/dL); URINE UROBILINOGEN 0.2 E.U./dL (<1 E.U./dL)
[2018-05-02 19:59] LABS: BASO # 0.03 K/mm3 (0.0-2.0); BASO % 0.3 % (0.0-3.0); EOS # 0.1 (0.0-0.7); HEMOGLOBIN 11.7 g/dL (12.0-16.0); LYMPH # 2.9 (1.2-3.4); LYMPH % 33.4 % (22.0-35.0); MEAN CELL VOLUME 80.6 fl (80.0-105.0); MEAN CORPUSCULAR HEMOGLOBIN 26.4 pg (25.0-35.0); MEAN CORPUSCULAR HGB CONC 32.8 g/dl (31.0-37.0); MEAN PLATELET VOLUME 9.7 fl (7.0-11.0); MONO # 0.5 (0.1-0.6); MONO % 5.8 % (1.0-6.0); RBC 4.43 10^6/uL (3.5-6.1); RED CELL DISTRIBUTION WIDTH 14.3 % (11.5-14.5); WHITE BLOOD COUNT 8.6 10^3/uL (4.5-11.0)
[2018-05-02 20:03] LABS: URINE APPEARANCE CLEAR (CLEAR); URINE COLOR YELLOW (YELLOW)
[2018-05-02 20:10] LABS: ALB/GLOB RATIO 1.2 (1.1-1.8); ALBUMIN 4.5 g/dL (3.0-4.8); ALT/SGPT 9 U/L (7-56); AST/SGOT 23 U/L (14-36); BLOOD UREA NITROGEN 8 mg/dL (7-21); CALCIUM 9.7 mg/dL (8.4-10.5); GFR NON-AFRICAN AMERICAN > 60
[2018-05-02 20:14] LABS: INR 1.06; PROTHROMBIN TIME 11.8 SECONDS (9.4-12.5)
[2018-05-02 20:26] LABS: TROPONIN I < 0.01 ng/mL
[2018-05-02 21:30] VITALS: RESP 18
[2018-05-02] MEDS ORDERED: Potassium Chloride 20 mEq ER Tab PO STA (21:37)
[2018-05-02 23:39] VITALS: BP 128/71; PULSE 77; TEMP 98.1; O2SAT 98
--- NOTE | 2018-05-03 08:11 | RAD ---
Date of service: 05/02/2018 HISTORY: CP COMPARISON: Portable chest 03/07/2017. FINDINGS: LUNGS: No active pulmonary disease. PLEURA: No significant pleural effusion identified, no pneumothorax apparent. CARDIOVASCULAR: No aortic atherosclerotic calcification present. Normal cardiac size. No pulmonary vascular congestion. OSSEOUS STRUCTURES: No significant abnormalities. VISUALIZED UPPER ABDOMEN: Normal. OTHER FINDINGS: None. IMPRESSION: No interval acute cardiopulmonary disease appreciated.
--- NOTE | 2018-05-04 19:33 | US ---
PROCEDURE: Left lower extremity venous US HISTORY: Leg pain and swelling. Evaluate for DVT. PHYSICIAN(S): Kishor Bagley MD. TECHNIQUE: Duplex sonography and color-flow Doppler with graded compression were used to evaluate the deep venous system of the left lower extremity. FINDINGS: The visualized deep venous system of the left lower extremity is sonographically normal and compressible. Normal wave forms and augmentation are seen. There is no sonographic evidence for deep venous thrombosis in the visualized segments of the left lower extremity. IMPRESSION: 1. No sonographic evidence for deep venous thrombosis in the visualized segments of the left lower extremity.
== END 2018-05-02 23:39 | disposition home or self-care (01) ==
LOC: ED 16:58
DX: R07.9 Chest pain, unspecified (principal); M79.605 Pain in left leg; S86.919A Strain of unspecified muscle(s) and tendon(s) at lower leg level, unspecified leg, initial encounter; X58.XXXA Exposure to other specified factors, initial encounter
CPT/HCPCS: 71045; 80053; 81003; 81025; 82550; 83615; 83735; 84484; 85025; 85378; 85610; 85730; 93005; 93971; 96374; 99283; J1885